=== PATIENT | male | born 1955 | race African-American/Black ===

== ENCOUNTER 2017-10-14 15:09 | Emergency (ER) | payer OTHER ==
[~2017-10-14] VITALS: Ht 172.7 cm; Wt 70.0 kg
[2017-10-14 15:11] VITALS: BP 169/102
== END 2017-10-14 18:08 | disposition left against medical advice (07) ==
LOC: ER 15:28
DX: Z53.21 Procedure and treatment not carried out due to patient leaving prior to being seen by health care provider (principal)